=== PATIENT | female | born 1995 | race Caucasian/White ===

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

== ENCOUNTER → 2017-01-16 | Outpatient (CLI) | payer OTHER | END | disposition home or self-care (01) | LOC: RAD.S 12:50 | DX: Z36 Encounter for antenatal screening of mother (principal); Z3A.20 20 weeks gestation of pregnancy ==

== ENCOUNTER 2017-03-09 19:27 | Emergency (ER) | payer OTHER, MEDICAID ==
--- NOTE | 2017-03-17 09:23 | ER ---
ADMIT: 03/09/2017 RM/LOC: ER [facility] MR#: [id number] [id number] [place] [address] Emergency Room Report SEX: F AGE: 22 : 1995 DATE: 03/09/2017 HISTORY OF PRESENT ILLNESS: She is 28 weeks' and 3 hours ago she felt some right foot cramp, which is between the big toe and the 2nd toe. Blood pressure and vitals are within normal limits. She is taking multivitamins. She does not have any other issues. She says that she has had this cramping in the past and was wearing tennis shoes earlier that were a little tight on the box, but then she switched to sandals, and ever since that, the pain has become a little bit more uncomfortable. On examination, tenderness in the web space between the big toe and 2nd toe. Massage done. Area much improved as far as pain is related. She was given Powerade to hydrate her. Her heart tones are 148. CLINICAL IMPRESSION: Mild dehydration. 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 Instructions given. Follow up and care of this neuroma. CRISTIANO Perez / Mk Norton MD / modl JOB #: [id number] CC: Mk Norton MD, Attending Physician Pastor Wilkins MD, Family Physician
[2017-06-18] MEDS ORDERED: PRENATAL VITAM1 EAC6 PO (10:34)
[2017-06-18] MEDS ORDERED: MOTRIN-DPS800 MG PO (10:35)
[2017-06-18] MEDS ORDERED: NIPPLECREAM TP (10:35)
[2017-06-18] MEDS ORDERED: TYLENOL EXTRA500 M1 PO (10:35)
[2017-06-18] MEDS ORDERED: DERMOPLAST SPRA56 GM TP (10:35)
[2017-06-18] MEDS ORDERED: LAN-O-SOOTHE7 GM TP (10:36)
== END 2017-03-09 20:20 | disposition home or self-care (01) ==
LOC: ER 19:27
DX: O99.283 Endocrine, nutritional and metabolic diseases complicating pregnancy, third trimester (principal); E86.0 Dehydration; Z3A.28 28 weeks gestation of pregnancy